=== PATIENT | female | born 1980 | race Caucasian/White ===

== ENCOUNTER → 2017-12-15 | Outpatient (CLI) | END | disposition home or self-care (01) ==

== ENCOUNTER 2018-03-08 19:29 | Emergency (ER) | END 2018-03-08 22:28 | disposition home or self-care (01) ==

== ENCOUNTER 2018-08-02 02:56 | Inpatient (IN) | payer MEDICAID ==
[~2018-08-02] VITALS: Ht 160 cm; Wt 81.4 kg
[2018-08-02 02:53] VITALS: BP 135/77; PULSE 70; RESP 20; Ht 160 cm; Wt 81.4 kg
[~2018-08-02 02:56] MED LIST: CALC600T5 PO; FERR27TA PO; PREN-46 PO
[2018-08-02] MEDS ORDERED: LACTATED RINGER'S 1,000 ML IV PRN (03:16)
[2018-08-02] MEDS ORDERED: MISOPROSTOL 200 MCG TAB PR PRN ×2 (03:30→08:30)
[2018-08-02] MEDS ORDERED: OXYTOCIN 30 UNITS/LR 500 ML IV SCH ×2 (03:30)
[2018-08-02] MEDS ORDERED: OXYTOCIN 30 UNITS/LR 500 ML IV PRN ×2 (03:30→08:30)
[2018-08-02] MEDS ORDERED: MINERAL OIL LIGHT 10 ML VIAL TOP PRN (03:30)
[2018-08-02] MEDS ORDERED: BUTORPHANOL 2 MG INJ IV PRN ×2 (03:30)
[2018-08-02] MEDS ORDERED: METHYLERGONOVINE 0.2 MG INJ IM PRN ×2 (03:30→08:30)
[2018-08-02] MEDS ORDERED: IBUPROFEN 600 MG TAB PO PRN (03:30)
[2018-08-02] MEDS ORDERED: LIDOCAINE 1% (MPF) 30 ML INJ INJ PRN (03:30)
[2018-08-02] MEDS ORDERED: CARBOPROST 250 MCG INJ IM PRN ×2 (03:30→08:30)
[2018-08-02] MEDS: LACTATED RINGER'S 1,000 ML IV SCH ×2 (03:48→04:07)
--- NOTE | 2018-08-02 06:44 | LDN ---
Date/Time of Note Date/Time of Note DATE: 08/02/18 TIME: 06:42 Delivery Summary of normal male Weeks of Gestation 39w2d Placenta Delivered: Spontaneously, Intact & Complete Meconium: none Episiotomy: No Perineal laceration: 0 Anesthesia type: Epidural Estimated blood loss: 100 Sponge & Needle done & correct: Yes All needle counts correct: Yes Any foreign bodies felt in the: No Infant Delivery Information Sex Infant Sex: male Apgars 1 Minute: 8 5 Minute: 9 Suctioning Nose & mouth suctioned at ashley: Yes Delee suction performed: Yes Umbilical Cord Umbilical cord with: 3 Vessels Cord presentations: no nuchal cord Cord Blood was obtained: Yes Mother & Baby Disposition Disposition Mom & Baby to Maternity; Good: Yes Mom transferred to: Other Baby to NICU: No () AMARIS PRASAD MD August 02, 2018 06:44
--- NOTE | 2018-08-02 06:57 | HP ---
Date/Time of Note Date/Time of Note DATE: 08/02/18 TIME: 06:44 OB - History Hx of Present Free Text/Dictation 37y.o at 39w2d with UC with intact membrane VE 4 /80/-2 CAT I no PNR is available GBS neg admitted for expectant management Chief Complaint: UC Estimated Due Date: August 07, 2018 : 3 Para: 2 Spontaneous : 0 Therapeutic : 0 Care: Other Ultrasounds: Other Obstetrical Complications: None Medical Complications: None Past Family/Social History * Past Medical, Surgical, Family and Obstetric Histories reviewed from chart. Blood Type: Unknown Rubella: unknown RPR/VDRL: Unknown GBS Status: Negative HBsAG: Unknown OB Admission Exam Vital Signs Vital Signs Vital Signs Date Temp Pulse Resp B/P (MAP) Pulse Ox O2 O2 Flow FiO2 Time Delivery Rate 08/02/18 98.4 70 20 135/77 02:53 (96) Physical Exam HEENT: WNL Heart: Rhythm Normal Lungs: Clear, Equal Abdomen: WNL Extremities: Normal Reflexes: Normal Cervical Dilatation: 4cm Effacement: 75% Station: -2 Membranes: Intact Amniotic Fluid: Unevaluable Heart Rate: 130's Accelerations: Accelerations Present Decelerations: No Decelerations Varibility: Moderate Contractions on Admission: < 5 Minutes Apart Intensity: Firm Last 72 hours Lab Results CBC & BMP 08/02/18 03:30 Liver Function Test 08/02/18 03:30 Alanine Aminotransferase (ALT/SGPT) 14 Albumin 3.6 Alkaline Phosphatase 104 Aspartate Amino Transf (AST/SGOT) 16 Direct Bilirubin 0.00 Total Protein 6.6 OB Assessment/Plan Reason for admission: active labor Other Assessment: IUP 39w2d Plan: Expectant Management AMARIS PRASAD MD August 02, 2018 06:57
[2018-08-02 08:30] VITALS: BP 113/58; PULSE 68; RESP 18
[2018-08-02] MEDS ORDERED: ZOLPIDEM 5 MG TAB PO PRN (08:30)
[2018-08-02] MEDS ORDERED: OXYCODONE/ASPIRIN (4.88/325) TAB PO PRN ×2 (08:30)
[2018-08-02] MEDS ORDERED: WITCH HAZEL/GLYCERIN PAD PR PRN (08:30)
[2018-08-02] MEDS ORDERED: LANOLIN HPA 1 PKT TOP PRN (08:30)
[2018-08-02] MEDS ORDERED: BENZOCAINE 20% 56 ML SPRAY TOP PRN (08:30)
[2018-08-02] MEDS: SENNA/DOCUSATE NA (8.6MG/50MG) TAB PO SCH ×2 (11:35→21:26)
[2018-08-02] MEDS: IBUPROFEN 600 MG TAB PO SCH ×2 (11:35→18:16)
[2018-08-02 16:00] VITALS: BP 101/56; PULSE 58; RESP 20
[2018-08-02 20:00] VITALS: BP 120/69; PULSE 69; RESP 18
[2018-08-03] VITALS: BP 100/57; PULSE 77; RESP 17
[2018-08-03] MEDS: IBUPROFEN 600 MG TAB PO SCH ×5 (00:15→23:55)
[2018-08-03 04:00] VITALS: BP 116/65; PULSE 75; RESP 16
[2018-08-03 09:10] VITALS: BP 110/70; PULSE 67; RESP 67
[2018-08-03] MEDS: SENNA/DOCUSATE NA (8.6MG/50MG) TAB PO SCH ×2 (10:09→20:58)
[2018-08-03 16:30] VITALS: BP 103/62; PULSE 80; RESP 18
--- NOTE | 2018-08-03 16:58 | DS ---
Date/Time of Note Date/Time of Note Home today or next day DATE: 08/03/18 TIME: 16:58 Obstetrical Discharge Record Final Diagnosis Final Diagnosis: Term delivered Other Final Diagnosis Status post vaginal delivery Vaginal Delivery Obstetrical Delivery: Spontaneous Condition on Discharge Physical Assessment Last Vitals: See nurse's notes Voiding: Yes Bowel Movement: Yes Breast: Soft, non-tender, Filling Fundus: Firm Abdomen and Incision: Abdomen is soft with firm fundus Episiotomy: Perineum is clean Calf Tenderness: No Patient Condition: Good ANTONIO JAVED MD August 03, 2018 16:58
--- NOTE | 2018-08-03 16:59 | PD.PPDC ---
INTERNET SALES DIRECTOR Discharge Instruction Provider Information Physician Information 37-year-old female had vaginal delivery Diagnosis [id number] Final Diagnosis: [id number] Status post vaginal delivery Condition [id number] Patient Condition: Cheso8e Good Diet Jtgrr7Fa Diet: Yeurt3l Resume Regular Diet Activity/Restrictions Eppza7Rj Activity: Kjxyv0z Normal Activity May Shower Dqpoz1Cv Restrictions: Jpckl5r Nothing in the Vagina Vonut4Ee Return to Work or School: Xingb7h Sep 20, 2018 Follow-up Follow-up with Physician: 2, 4, Week/Weeks (In clinic for follow-up) Return to clinic for Wctbd4Yv OB Instructions: Edbip5c Breast Tenderness Depression Comment: Pelvic rest for 6 weeks ANTONIO JAVED MD August 03, 2018 16:59
[2018-08-03] MEDS ORDERED: IBUP-1542 PO (17:00)
[2018-08-03 19:45] VITALS: BP 119/79; PULSE 76; RESP 18
[2018-08-04 04:25] VITALS: BP 106/72; PULSE 76; RESP 18
[2018-08-04] MEDS: IBUPROFEN 600 MG TAB PO SCH ×3 (05:39→17:38)
[2018-08-04 08:55] VITALS: BP 103/66; PULSE 82; RESP 18
[2018-08-04] MEDS ORDERED: DIPHTH/TET/ACEL PERTUSS (ADULT) 0.5 ML VIAL IM* ONE (09:00)
[2018-08-04] MEDS: SENNA/DOCUSATE NA (8.6MG/50MG) TAB PO SCH (10:15)
[2018-08-04 16:02] VITALS: BP 134/81; PULSE 87; RESP 18
--- NOTE | 2018-08-05 18:56 | DELSUM ---
Delivery Summary A-C Datetime Report Generated by CPN: 08/05/2018 18:56 DELIVERY PERSONNEL Heel Shaver: Mathews, Polly MATERNAL INFORMATION Delivery Anesthesia: None Medications in Delivery: 30 UNITS OF PITOCIN Delivery QBL (ml): 100 Placenta Cultured: No Maternal Complications: None LABOR SUMMARY EDC: 08/07/2018 00:00 No. Babies in Womb: 1 Attempted: No Labor Anesthesia: None LABOR INFORMATION Reason for Induction: Not Applicable Complete Dilatation: 08/02/2018 06:13 Oxytocin: N/A Group B Beta Strep: Negative Steroids Given: None Reason Steroids Not Administered: Not Applicable MEMBRANES Membranes Rupture Method: Spontaneous Rupture of Membranes: 08/02/2018 04:27 Length of Rupture (hr): 1.95 Amniotic Fluid Color: Clear Amniotic Fluid Amount: Moderate Amniotic Fluid Odor: None STAGES OF LABOR Stage 2 hr: 0 Stage 2 min: 11 Stage 3 hr: 0 Stage 3 min: 4 VAGINAL DELIVERY Episiotomy: None Laceration Type: None Laceration Repair: Not Applicable Initial Vag Sponge Count: 10 Final Vag Sponge Count: 10 Initial Vag Sharps Count: 1 Final Vag Sharps Count: 1 Sponge Count Correct: Yes; Vaginal Sweep Performed Sharps Count Correct: Yes BABY A INFORMATION Infant Delivery Date/Time: 08/02/2018 06:24 Method of Delivery: Vaginal Born in Route : No : N/A Forceps: N/A Vacuum Extraction: N/A Shoulder Dystocia : No SHOULDER DYSTOCIA BABY A Infant Delivery Date/Time: 08/02/2018 06:24 PRESENTATION/POSITION BABY A Presentation: Cephalic Cephalic Presentation: Vertex Vertex Position: Left Occipital Posterior Breech Presentation: N/A PLACENTA INFORMATION BABY A Placenta Delivery Time : 08/02/2018 06:28 Placenta Method of Delivery: Spontaneous Placenta Status: Delivered SCORES BABY A Heart Rate 1 min: >100 bpm Resp Effort 1 min: Good Cry Reflex Irritability 1 min: Cough/Sneeze/Pulls Away Muscle Tone 1 min: Active Motion Color 1 min: Blue/Pale Resuscitation Effort 1 min: Tactile Stimulation SCORE 1 MIN: 8 Heart Rate 5 min: >100 bpm Resp Effort 5 min: Good Cry Reflex Irritability 5 min: Cough/Sneeze/Pulls Away Muscle Tone 5 min: Active Motion Color 5 min: Body [place], Extremit Blue Resuscitation Effort 5 min: Tactile Stimulation SCORE 5 MIN: 9 INFORMATION BABY A Gestational Age at Delivery: 39.2 Gestational Status: Full Term- 39- 40.6 Weeks Infant Outcome : Liveborn Condition : Stable Infant Sex: Male IDENTIFICATION/MEDS BABY A ID Band Number: [id number] ID Band Location: Right Leg; Left Arm Sensor Applied: Yes Sensor Number: [id number] Sensor Location : Cord Clamp Vitamin K Given : Not Given Erythromycin Given: Not Given WEIGHT/LENGTH BABY A Birthweight (gm): 3085 Infant Weight (lb): 6 Weight (oz): 13 Infant Length (in): 19.50 Infant Length (cm): 49.53 CORD INFORMATION BABY A No. Cord Vessels: 3 Nuchal Cord : N/A Cord Blood Taken: Yes Suction: Mouth; Nose ASSESSMENT BABY A Infant Complications: Extended Bradycardi; Multiple Variable Decels Physical Findings at Delivery: Molding of the Head; Within Normal Limits Infant Respirations: Appears Normal Behavioral Therapy Coordinator/ALS Called : No Infant Care By: SIENNA Transferred To: Remains with Mother
== END 2018-08-04 18:35 | disposition home or self-care (01) | DRG 807 ==
LOC: OBT 02:56 → L-D 02:56 → OBT 03:06 → L-D 03:51 → PP1 08:26
PROVIDERS: ADMIT Obstetrics & Gynecology; ATTEND Obstetrics & Gynecology
PROC: 10E0XZZ Delivery of Products of Conception, External Approach (ICD-10-PCS; principal; 2018-08-02)
DX: O80 Encounter for full-term uncomplicated delivery (principal); Z37.0 Single live birth; Z3A.39 39 weeks gestation of pregnancy
CPT/HCPCS: 76815; 76818; 80053; 81001; 84560; 85025; 85610; 85730; 86592; 86762; 86850; 86900; 86901; 87340; 99464; G0463; J0595; J2590; J7120